=== PATIENT | female | born 1970 | race Caucasian/White ===

== ENCOUNTER → 2017-01-09 | Outpatient (CLI) | payer MEDICARE, OTHER ==
--- NOTE | 2017-01-09 12:10 | MM ---
Reason for exam: follow-up at short interval from prior study. Last mammogram was performed 6 months ago. History: Patient has history of other cancer at age 22. Family history of premenopausal breast cancer in maternal aunt and premenopausal breast cancer in maternal grandmother. US discontinued breast bx LT of the left breast, July 16, 2016. Physical Findings: Nurse did not find any significant physical abnormalities on exam. MG 3D Diag Mammo W/Cad ROMA Bilateral CC and MLO view(s) were taken. Prior study comparison: July 09, 2016, left breast MG 3d diag mammo w/cad LT. December 09, 2015, left breast MG 3d work up w/cad LT. There are scattered fibroglandular densities. Finding: There are typically benign round calcifications in both breasts. Asymmetric breast tissue in the right breast medial aspect, stable left medial aspect. There is no discrete abnormality. These results were verbally communicated with the patient and result sheet given to the patient on 01/09/17. ASSESSMENT: Benign, BI-RAD 2 RECOMMENDATION: Routine screening mammogram of both breasts in 1 year.
== END | disposition home or self-care (01) ==
LOC: RADMAMWWP 11:03
PROVIDERS: ATTEND Family Medicine
DX: Z12.31 Encounter for screening mammogram for malignant neoplasm of breast (principal); Z80.3 Family history of malignant neoplasm of breast
CPT/HCPCS: G0204; G0279

== ENCOUNTER → 2018-03-24 | Outpatient (CLI) | payer MEDICARE ==
--- NOTE | 2018-03-25 14:48 | XR ---
EXAMINATION TYPE: XR foot complete RT DATE OF EXAM: 03/24/2018 CLINICAL HISTORY: pain TECHNIQUE: Frontal, lateral and oblique images of the right foot are obtained. COMPARISON: None. FINDINGS: There is no acute fracture/dislocation evident. The joint spaces appear within normal jerez its. The overlying soft tissue appears unremarkable. Postoperative changes distal tibia. IMPRESSION: There is no acute fracture or dislocation. ICD 10 NO FRACTURE, INITIAL EVALUATION
== END | disposition home or self-care (01) ==
LOC: RADXRMAIN 15:41
PROVIDERS: ATTEND Family Medicine
DX: L84 Corns and callosities (principal)

== ENCOUNTER → 2018-05-08 | Outpatient (CLI) | payer MEDICARE ==
--- NOTE | 2018-05-08 13:59 | MR ---
EXAMINATION TYPE: MR lumbar spine wo con DATE OF EXAM: 05/08/2018 COMPARISON: X-rays lumbar spine 04/27/2011 HISTORY: Low back pain CONTRAST: 0 mL intravenous Gadavist. TECHNIQUE: Multiplanar, multisequence images of the lumbar spine were acquired. The lowest disc levels labeled S 1-S2 FINDINGS: Cord terminates at the T12-L1 level. S1-S2: Mild residual disc remains at this level. No focal disc herniation or significant disc bulge i s evident. L5-S1: Disc desiccation and some mild endplate changes are present. No spinal canal stenosis or neura l foraminal stenosis is present. Some facet degenerative changes present. No spinal canal stenosis. No foraminal stenosis. Neural foramen are patent.. L4-L5: No significant disc bulge or disc herniation. No spinal canal stenosis. No foraminal stenosi s. Neural foramen are patent.. L3-L4: No significant disc bulge or disc herniation. No spinal canal stenosis. No foraminal stenosi s. . L2-L3: No significant disc bulge or disc herniation. No spinal canal stenosis. No foraminal stenosi s. . L1-L2: No significant disc bulge or disc herniation. No spinal canal stenosis. No foraminal stenosi s. . T12-L1: No significant disc bulge or disc herniation. No spinal canal stenosis. No foraminal stenos is. . IMPRESSION: 1. Degenerative disc changes and disc desiccation L5-S1 with some mild endplate changes.
== END | disposition home or self-care (01) ==
LOC: RADMRIMAIN 13:05
PROVIDERS: ATTEND Family Medicine
DX: M47.816 Spondylosis without myelopathy or radiculopathy, lumbar region (principal); M51.36 Other intervertebral disc degeneration, lumbar region
CPT/HCPCS: 72148

== ENCOUNTER → 2018-12-23 | Outpatient (CLI) | payer MEDICARE, OTHER ==
--- NOTE | 2018-12-24 10:59 | MM ---
Reason for exam: screening (asymptomatic). Last mammogram was performed 1 year and 11 months ago. History: Patient is postmenopausal and has history of other cancer at age 22. Family history of premenopausal breast cancer in maternal aunt and premenopausal breast cancer in maternal grandmother. US discontinued breast bx LT of the left breast, July 16, 2016. Physical Findings: A clinical breast exam by your physician is recommended on an annual basis and results should be correlated with mammographic findings. MG 3D Screening Mammo W/Cad Bilateral CC and MLO view(s) were taken. XCCL view(s) were taken of the right breast. Prior study comparison: January 09, 2017, bilateral MG 3d diag mammo w/cad ROMA. July 09, 2016, left breast MG 3d diag mammo w/cad LT. The breast tissue is heterogeneously dense. This may lower the sensitivity of mammography. Stable benign calcifications. There is no discrete abnormality. No significant changes when compared with prior studies. ASSESSMENT: Benign, BI-RAD 2 RECOMMENDATION: Routine screening mammogram of both breasts in 1 year.
== END | disposition home or self-care (01) ==
LOC: RADMAMWWP 08:38
PROVIDERS: ATTEND Family Medicine
DX: Z12.31 Encounter for screening mammogram for malignant neoplasm of breast (principal); Z80.3 Family history of malignant neoplasm of breast
CPT/HCPCS: 77063; 77067

== ENCOUNTER 2019-02-27 10:50 | Emergency (ER) | payer MEDICARE, OTHER ==
[2019-02-27] MEDS ORDERED: ADENOSINE 3 MG/ML 2 ML VIAL IVP STA ×2 (11:00→11:05)
[2019-02-27] MEDS ORDERED: SODIUM CHLORIDE 0.9% 1,000 ML IV STA (11:00)
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
[2019-02-27 11:47] LABS: Basophils # (A) 0.1 k/uL (0-0.2); Basophils % (A) 1 %; Eosinophils # (A) 0.2 k/uL (0-0.7); Eosinophils % (A) 3 %; HCT 47.6 % (34.0-46.0); HGB 15.2 gm/dL (11.4-16.0); Lymphocytes # (A) 3.5 k/uL (1.0-4.8); Lymphocytes % (A) 53 %; MCH 28.5 pg (25.0-35.0); MCV 89.2 fL (80.0-100.0); Mean Platelet Volume 7.9; Monocytes # (A) 0.3 k/uL (0-1.0); Monocytes % (A) 5 %; Neutrophils # (A) 2.3 k/uL (1.3-7.7); Neutrophils % (A) 35 %; Platelet Count 302 k/uL (150-450); RBC 5.34 m/uL (3.80-5.40); WBC 6.6 k/uL (3.8-10.6)
[2019-02-27 11:49] LABS: Appearance,Urine Clear (Clear); Bilirubin,Urine Negative (Negative); Blood,Urine Negative (Negative); Color,Urine Light Yellow; Glucose,Urine (UA) 3+ (Negative); Ketones,Urine Negative (Negative); Leukocyte Esterase,Urine Negative (Negative); Nitrite,Urine Negative (Negative); PH, Urine 6.5 (5.0-8.0); Protein,Urine Negative (Negative); Specific Gravity,Urine 1.005 (1.001-1.035); Urobilinogen,Urine <2.0 mg/dL (<2.0)
[2019-02-27 11:59] LABS: INR 0.9 (<1.2); Partial Thromboplastin Time 22.9 sec (22.0-30.0); Prothrombin Time 10.1 sec (9.0-12.0)
[2019-02-27 12:02] LABS: ALT 23 U/L (9-52); AST 20 U/L (14-36); Albumin 3.9 g/dL (3.5-5.0); Alkaline Phosphatase 85 U/L (38-126); Anion Gap 8 mmol/L; Blood Urea Nitrogen 7 mg/dL (7-17); Calcium 9.2 mg/dL (8.4-10.2); Carbon Dioxide 25 mmol/L (22-30); Chloride 108 mmol/L (98-107); Glucose 121 mg/dL (74-99); Magnesium 1.9 mg/dL (1.6-2.3); Potassium 4.5 mmol/L (3.5-5.1); Sodium 141 mmol/L (137-145); Total Bilirubin 0.7 mg/dL (0.2-1.3); Total Protein 6.9 g/dL (6.3-8.2)
[2019-02-27 12:07] LABS: Amphetamine Screen,Urine Not Detected (NotDetected); Barbiturate Screen,Urine Not Detected (NotDetected); Benzodiazepines Screen,Urine Not Detected (NotDetected); Cocaine Screen,Urine Not Detected (NotDetected); Methadone Screen, Urine Not Detected (NotDetected); Opiate Screen,Urine Not Detected (NotDetected); Oxycodone Screen, Urine Detected (NotDetected); Phencyclidine Screen,Urine Not Detected (NotDetected); Tricyclic Antidepressant,Urine Not Detected (NotDetected); Urn Cannabinoid Scrn Not Detected (NotDetected)
--- NOTE | 2019-02-27 12:19 | XR ---
EXAMINATION TYPE: XR chest 2V DATE OF EXAM: 02/27/2019 COMPARISON: 11/05/2016 TECHNIQUE: PA and lateral views submitted. HISTORY: Dysrhythmia FINDINGS: The lungs are clear and there is no pneumothorax, pleural effusion, or focal pneumonia. Arthropathy of the shoulders. No overt failure. Hypertrophic and degenerative change of the spine. IMPRESSION: 1. No acute process.
[2019-02-27 12:52] LABS: Glucose,Whole Blood 58 mg/dL (75-99)
--- NOTE | 2019-02-27 13:03 | ED ---
Medical Decision Making - Medical Decision Making Patient was found be awake alert oriented 3 she did feel somewhat weak however she felt like her blood sugar was down it was below normal she was given food and didn't feel much improved. She will be discharged as planned - Lab Data Result diagrams: 02/27/19 11:00 02/27/19 11:00 Lab Results 02/27/19 02/27/19 02/27/19 Range/Units 11:00 11:00 11:00 WBC 6.6 (3.8-10.6) k/uL RBC 5.34 (3.80-5.40) m/uL Hgb 15.2 (11.4-16.0) gm/dL Hct 47.6 H (34.0-46.0) % MCV 89.2 (80.0-100.0) fL MCH 28.5 (25.0-35.0) pg MCHC 32.0 (31.0-37.0) g/dL RDW 13.0 (11.5-15.5) % Plt Count 302 (150-450) k/uL Neutrophils % 35 % Lymphocytes % 53 % Monocytes % 5 % Eosinophils % 3 % Basophils % 1 % Neutrophils # 2.3 (1.3-7.7) k/uL Lymphocytes # 3.5 (1.0-4.8) k/uL Monocytes # 0.3 (0-1.0) k/uL Eosinophils # 0.2 (0-0.7) k/uL Basophils # 0.1 (0-0.2) k/uL PT 10.1 (9.0-12.0) sec INR 0.9 (<1.2) APTT 22.9 (22.0-30.0) sec Sodium 141 (137-145) mmol/L Potassium 4.5 (3.5-5.1) mmol/L Chloride 108 H (98-107) mmol/L Carbon Dioxide 25 (22-30) mmol/L Anion Gap 8 mmol/L BUN 7 (7-17) mg/dL Creatinine 0.62 (0.52-1.04) mg/dL Est GFR (CKD-EPI)AfAm >90 (>60 ml/min/1.73 sqM) Est GFR (CKD-EPI)NonAf >90 (>60 ml/min/1.73 sqM) Glucose 121 H (74-99) mg/dL POC Glucose (mg/dL) (75-99) mg/dL POC Glu Spray I Painter ID Calcium 9.2 (8.4-10.2) mg/dL Magnesium 1.9 (1.6-2.3) mg/dL Total Bilirubin 0.7 (0.2-1.3) mg/dL AST 20 (14-36) U/L ALT 23 (9-52) U/L Alkaline Phosphatase 85 (38-126) U/L Troponin I (0.000-0.034) ng/mL Total Protein 6.9 (6.3-8.2) g/dL Albumin 3.9 (3.5-5.0) g/dL TSH 2.860 (0.465-4.680) mIU/L Urine Color Urine Appearance (Clear) Urine pH (5.0-8.0) Ur Specific [place] (1.001-1.035) Urine Protein (Negative) Urine Glucose (UA) (Negative) Urine Ketones (Negative) Urine Blood (Negative) Urine Nitrite (Negative) Urine Bilirubin (Negative) Urine Urobilinogen (<2.0) mg/dL Ur Leukocyte Esterase (Negative) Urine Opiates Screen (NotDetected) Ur Oxycodone Screen (NotDetected) Urine Methadone Screen (NotDetected) Ur Propoxyphene Screen (NotDetected) Ur Barbiturates Screen (NotDetected) U Tricyclic Antidepress (NotDetected) Ur Phencyclidine Scrn (NotDetected) Ur Amphetamines Screen (NotDetected) U Methamphetamines Scrn (NotDetected) U Benzodiazepines Scrn (NotDetected) Urine Cocaine Screen (NotDetected) U Marijuana (THC) Screen (NotDetected) 02/27/19 02/27/19 02/27/19 Range/Units 11:00 11:00 12:51 WBC (3.8-10.6) k/uL RBC (3.80-5.40) m/uL Hgb (11.4-16.0) gm/dL Hct (34.0-46.0) % MCV (80.0-100.0) fL MCH (25.0-35.0) pg MCHC (31.0-37.0) g/dL RDW (11.5-15.5) % Plt Count (150-450) k/uL Neutrophils % % Lymphocytes % % Monocytes % % Eosinophils % % Basophils % % Neutrophils # (1.3-7.7) k/uL Lymphocytes # (1.0-4.8) k/uL Monocytes # (0-1.0) k/uL Eosinophils # (0-0.7) k/uL Basophils # (0-0.2) k/uL PT (9.0-12.0) sec INR (<1.2) APTT (22.0-30.0) sec Sodium (137-145) mmol/L Potassium (3.5-5.1) mmol/L Chloride (98-107) mmol/L Carbon Dioxide (22-30) mmol/L Anion Gap mmol/L BUN (7-17) mg/dL Creatinine (0.52-1.04) mg/dL Est GFR (CKD-EPI)AfAm (>60 ml/min/1.73 sqM) Est GFR (CKD-EPI)NonAf (>60 ml/min/1.73 sqM) Glucose (74-99) mg/dL POC Glucose (mg/dL) 58 L (75-99) mg/dL POC Glu Spray I Painter ID Kael Rhodes Calcium (8.4-10.2) mg/dL Magnesium (1.6-2.3) mg/dL Total Bilirubin (0.2-1.3) mg/dL AST (14-36) U/L ALT (9-52) U/L Alkaline Phosphatase (38-126) U/L Troponin I <0.012 (0.000-0.034) ng/mL Total Protein (6.3-8.2) g/dL Albumin (3.5-5.0) g/dL TSH (0.465-4.680) mIU/L Urine Color Light Yellow Urine Appearance Clear (Clear) Urine pH 6.5 (5.0-8.0) Ur Specific [place] 1.005 (1.001-1.035) Urine Protein Negative (Negative) Urine Glucose (UA) 3+ H (Negative) Urine Ketones Negative (Negative) Urine Blood Negative (Negative) Urine Nitrite Negative (Negative) Urine Bilirubin Negative (Negative) Urine Urobilinogen <2.0 (<2.0) mg/dL Ur Leukocyte Esterase Negative (Negative) Urine Opiates Screen Not Detected (NotDetected) Ur Oxycodone Screen Detected H (NotDetected) Urine Methadone Screen Not Detected (NotDetected) Ur Propoxyphene Screen Not Detected (NotDetected) Ur Barbiturates Screen Not Detected (NotDetected) U Tricyclic Antidepress Not Detected (NotDetected) Ur Phencyclidine Scrn Not Detected (NotDetected) Ur Amphetamines Screen Not Detected (NotDetected) U Methamphetamines Scrn Not Detected (NotDetected) U Benzodiazepines Scrn Not Detected (NotDetected) Urine Cocaine Screen Not Detected (NotDetected) U Marijuana (THC) Screen Not Detected (NotDetected) Disposition Clinical Impression: Supraventricular tachycardia, Atypical chest pain, Hypoglycemic episode in patient with diabetes mellitus Disposition: HOME SELF-CARE Condition: Good Instructions (If sedation given, give patient instructions): Supraventricular Tachycardia (ED), Heart Palpitations (ED), Hypoglycemia in a Person with Diabetes (ED) Is patient prescribed a controlled substance at d/c from ED?: No Referrals: Louie Ruiz MD [Primary Care Provider] - 1-2 days
[2019-02-27 13:19] LABS: Glucose,Whole Blood 77 mg/dL (75-99)
[2019-02-27 14:10] VITALS: BP 121/78; PULSE 89; RESP 18; TEMP 98.1
== END 2019-02-27 14:07 | disposition home or self-care (01) ==
LOC: EC 10:50
DX: I47.1 Supraventricular tachycardia (principal); E11.649 Type 2 diabetes mellitus with hypoglycemia without coma; I11.9 Hypertensive heart disease without heart failure; Z86.14 Personal history of Methicillin resistant Staphylococcus aureus infection; Z96.652 Presence of left artificial knee joint; Z79.890 Hormone replacement therapy; Z79.891 Long term (current) use of opiate analgesic; Z79.4 Long term (current) use of insulin; Z79.82 Long term (current) use of aspirin; Z79.899 Other long term (current) drug therapy; Z88.8 Allergy status to other drugs, medicaments and biological substances; Z88.5 Allergy status to narcotic agent; Z91.040 Latex allergy status; Z91.048 Other nonmedicinal substance allergy status
CPT/HCPCS: 36415; 93005; 80053; 83735; 84443; 84484; 85025; 85610; 85730; 81003; 80306; 71046; 99291; 96374; 96361; J0153

== ENCOUNTER → 2019-06-27 | Outpatient (CLI) | payer MEDICARE ==
--- NOTE | 2019-06-27 09:52 | MR ---
EXAMINATION TYPE: MR shoulder RT wo con DATE OF EXAM: 06/27/2019 COMPARISON: None HISTORY: Rt shoulder pain, Rot cuff tear TECHNIQUE: Multiplanar, multisequence imaging of the right shoulder is performed without contrast. FINDINGS: There is hypertrophic change involving the AC joint with reactive marrow edema. There is im pingement and mass effect upon the rotator cuff supraspinatus tendon and muscle. There is diffuse tendinopathy of the distal supraspinatus and infraspinatus tendons. Along the unders urface of the infraspinatus tendon there is a partial tear extending to the musculotendinous junction from the insertion. There is tendinopathy involving the distal 1 cm of the supraspinatus tendon. There is a partial intra substance tear. Suspect a partial 3 mm through thickness tear. There is no retraction of either tendo n. Subscapularis tendon is intact. Bony labrum grossly intact by nonarthrogram technique. Cystic change involving the humeral head likel y the basis of chronic impingement. Bicipital tendon well situated the bicipital groove. IMPRESSION: 1. Impingement secondary to AC joint arthropathy resulting in diffuse tendinopathy of the supraspinat us and infraspinatus tendons with partial undersurface\intrasubstance tears. 3 mm focal through thick ness tear insertion of the supraspinatus tendon. No retraction.
== END | disposition home or self-care (01) ==
LOC: RADMRIMAIN 08:17
PROVIDERS: ATTEND Family Medicine
DX: M12.811 Other specific arthropathies, not elsewhere classified, right shoulder (principal); S46.911A Strain of unspecified muscle, fascia and tendon at shoulder and upper arm level, right arm, initial encounter

== ENCOUNTER → 2025-04-07 | Outpatient (CLI) | payer OTHER ==
--- NOTE | 2025-04-07 11:39 | XR ---
EXAMINATION TYPE: XR lumbar spine 3V, XR pelvis AP view, XR Hip Complete 2 views LT, XR femur 2 views LT DATE OF EXAM: 04/07/2025 11:29 AM COMPARISON: None CLINICAL INDICATION: Female, 54 years old with history of S33.5XXA lumbar contusion; PHH, slip and f all, pain FINDINGS: Lumbar spine: Transitional lumbosacral segment denoted as a sacralized L5. Moderate to severe degenerative disc dis ease L4-L5. Hypertrophic facet arthropathy lower lumbar spine. Vertebral body heights are preserved a nd alignment is maintained. There is 6 mm of posterior displacement at the distal coccyx. Pelvis: SI joints appear symmetric and intact as does the pubic symphysis. Mild degenerative spurring left hi p. Hip joint spaces relatively maintained on both sides. No acute fracture, dilatation, dislocation. Left hip and left femur: Mild degenerative spurring. No acute fracture, subluxation, dislocation. There is left total knee art hroplasty. No periprosthetic fracture seen. No femoral shaft fracture. IMPRESSION: Lumbar spine: 1. 6 mm of posterior displacement at the distal coccyx. Correlate for point tenderness for suspected tailbone fracture. 2. Transitional lumbosacral segment is noted as a sacralized L5. Moderate to severe degenerative disc disease at L4-L5. 3. Hypertrophic facet arthropathy. No vertebral compression collapse or malalignment otherwise seen. Pelvis: 4. Mild left hip OA. No acute osseous abnormalities seen. Left hip and left femur: 5. Mild left hip OA. 6. Uncomplicated appearance to the left total knee arthroplasty. 7. No acute osseous abnormalities seen. [facility], , 04/07/2025 11:37 AM
== END | disposition home or self-care (01) ==
LOC: RADXRMAIN 10:53
PROVIDERS: ATTEND Emergency Medicine
DX: S70.02XA Contusion of left hip, initial encounter (principal); S33.5XXA Sprain of ligaments of lumbar spine, initial encounter; Z96.652 Presence of left artificial knee joint; M16.12 Unilateral primary osteoarthritis, left hip; M47.816 Spondylosis without myelopathy or radiculopathy, lumbar region
CPT/HCPCS: 72100; 72170; 73502